=== PATIENT | male | born 1930 | race Caucasian/White ===

== ENCOUNTER → 2016-10-13 | Outpatient (CLI) | payer OTHER ==
[~2016-10-13] MED LIST: AMITRIPTYLINE H25 M3 PO; AMITRIPTYLINE H25 M4 PO; APAP500 PO; ASPIRIN325 PO; CIPROFLOXACIN500 M3 PO; CO Q-10100 MG PO; D-20002000 UNIT PO; FIBER-TABS625 MG PO; FISH OIL 1,001000 M2 PO; FISH OIL 1,2001 EAC4 PO; FLOMAX0.4 MG PO; GLYCOLAX POWDER17 G1 PO; HYDROCODON-ACE1 EAC7 PO; HYTRIN 2MG CAPSU2 M1 PO; HYTRIN 2MG CAPSU2 MG PO; IMDUR 60 MG TAB60 M1 PO; LIVALO4 MG PO; LOPRESSOR 50 MG50 M1 PO; LOPRESSOR25 PO; MIRALAX17 GM PO; MULTI VITAMIN1 EACH PO; NIASPAN ER 101000 M1 PO; NITROSTAT0.4 MG SL; OMEGA-31000 MG PO; OMEPRAZOLE 20 M20 MG PO; ONE DAILY COMP1 EAC1 PO; OSTEO BI-FLEX1 EAC1 PO; SYNTHROID137 MCG PO; TAMSULOSIN HCL0.4 M1 PO; TRIAMTERENE-HC1 EAC1 PO; TRIAMTERENE/HCT1 CA1 PO; TYLENOL W/CODEI1 TA2 PO; VITAMIN D-32000 UNIT PO; [UNRECOGNIZED DRUG - CODE] PO
== END ==
LOC: RAD 13:13
DX: R06.02 Shortness of breath (principal)

== ENCOUNTER → 2020-01-17 | Outpatient (CLI) | payer OTHER | LOC: SJCVCIMAG 12:08 | DX: R94.31 Abnormal electrocardiogram [ECG] [EKG] (principal); R00.1 Bradycardia, unspecified; I45.10 Unspecified right bundle-branch block; I65.23 Occlusion and stenosis of bilateral carotid arteries; I25.10 Atherosclerotic heart disease of native coronary artery without angina pectoris; I10 Essential (primary) hypertension; E78.5 Hyperlipidemia, unspecified; Z87.891 Personal history of nicotine dependence ==

== ENCOUNTER → 2020-07-17 | Outpatient (CLI) | payer OTHER | LOC: SJCVC 12:57 | PROVIDERS: ATTEND Internal Medicine | DX: R94.31 Abnormal electrocardiogram [ECG] [EKG] (principal); I49.8 Other specified cardiac arrhythmias; I25.10 Atherosclerotic heart disease of native coronary artery without angina pectoris; I10 Essential (primary) hypertension; I65.23 Occlusion and stenosis of bilateral carotid arteries; I45.10 Unspecified right bundle-branch block; E78.5 Hyperlipidemia, unspecified ==

== ENCOUNTER → 2021-01-14 | Outpatient (CLI) | payer OTHER ==
[~2021-01-14] MED LIST changes: +FINASTERIDE5 MG PO; +LOPRESSOR50 MG PO; +POTASSIUM CHLO10 ME1 PO; +TYLENOL325 M1 PO
== END ==
LOC: RAD 11:19
PROVIDERS: ATTEND Surgery
DX: M19.071 Primary osteoarthritis, right ankle and foot (principal); M79.89 Other specified soft tissue disorders

== ENCOUNTER → 2021-01-14 | Outpatient (CLI) | payer OTHER | LOC: LAB 11:42 | PROVIDERS: ATTEND Surgery | DX: Z01.812 Encounter for preprocedural laboratory examination (principal); Z20.822 Contact with and (suspected) exposure to COVID-19 ==

== ENCOUNTER 2021-01-15 10:09 | Day surgery (SDC) | payer OTHER ==
[~2021-01-15] VITALS: Ht 180.3 cm; Wt 97.5 kg
[2021-01-15 11:45] VITALS: BP 144/78
[2021-01-15] MEDS ORDERED: HYDROCODON-ACE1 EAC7 PO (14:33)
[2021-01-15 14:49] VITALS: BP 144/78
--- NOTE | 2021-01-19 19:06 | PATH ---
[facility] [address] [place] [address] PATHOLOGY RPT PROCEDURE Name: OSMAR BARRON Stefani Room #: DEP [facility] M.R.#: [id number] Admission: 01/15/21 Date of : 32 Discharge: 01/15/21 Report #: [id number] Path Case #: [id number] [facility] Accession Number: [id number] . 01 Material submitted: . PART A: shoulder - RIGHT POSTERIOR SHOULDER. Modifiers: right, posterior PART B: back - LEFT BACK. Modifiers: left PART C: ankle - RIGHT ANKLE. Modifiers: right . 01 Clinical history: . DISORDER OF SKIN AND SUBCUTANEOUS SKIN . 02 Diagnosis: A. Skin, lesion right posterior shoulder, excision: - BASAL CELL CARCINOMA. - Margins of resection negative for malignancy. . B. Skin, left left back, excision: - INVASIVE SQUAMOUS CELL CARCINOMA. - Margins of resection negative for malignancy. . C. Skin, lesion right ankle, excision: - Mature keratinous cyst. - Negative for malignancy. ([facility]:erin; 01/19/2021) QMS 01/19/2021 1851 Local . 02 Electronically signed: . Cintia Kaplan MD, Pathologist NPI- [id number] . 01 Gross description: . A. Received in formalin labeled "Osmar Barron, lesion right posterior shoulder" is an unoriented ellipse of skin measuring 4.2 x 1.7 x 1.1 cm. The skin surface displays an irregular, arauz white raised possible lesion measuring 1.6 x 0.7 cm and is located 0.9 cm from the closest tip and 0.3 cm from the closest edge. The margin is inked and the specimen is sectioned into 11 pieces. The specimen is submitted entirely in A1-A4, with the tips in the last cassette. . B. Received in formalin labeled "Osmar Barron lesion left back" is an unoriented ellipse of skin measuring 3.8 x 1.8 x 1.1 cm. The skin surface displays a raised irregular, arauz-white lesion measuring 1.4 x 1.2 x 0.9 cm and is located 1.1 cm from the closest tip and 0.3 cm closest edge. The margin is inked and the specimen is sectioned into 10 pieces. The specimen is submitted entirely in B1-B4, with the tips in the last cassette. . [address] [address] PATHOLOGY RPT PROCEDURE Name: OSMAR BARRON Room #: DEP [facility] Benjamin#: [id number] Admission: 01/15/21 Date of : 32 Discharge: 01/15/21 Report #: [id number] Path Case #: [id number] C. Received in formalin labeled "Osmar Barron lesion right ankle" is an unoriented ellipse of skin measuring 4.7 x 1.9 x 0.7 cm. The skin surface displays an irregular ill-defined arauz-white lesion measuring 1.7 x 1.0 0.1 cm located 1.1 cm closest tip and 0.2 cm closest edge. The margin is inked and the specimen is sectioned into 14 pieces. The specimen is submitted entirely in C1-C5, with the tips in the last cassette. ([facility]; 01/17/2021) . GZA/GZA 01/19/2021 1614 Local . 02 Pathologist provided ICD-10: C44.612, C44.529, L72.0 . 02 CPT . 545177, 348894, 201006 Specimen Comment: A courtesy copy of this report has been sent to [phone], [phone] Specimen Comment: [phone] Specimen Comment: Report sent to / DR DESAI Performed at: [address], [place] [id number] MD Candelario Blas MD Phone: [phone] Performed at: [address] [id number] MD Cintia Kaplan MD Phone: [phone]
--- NOTE | 2021-01-20 11:03 | O ---
[facility] [place] [address] OPERATIVE REPORT Name: OSMAR DANG Room #: DEP [facility]#: [id number] Admission: 01/15/21 Attend Phys: Lencho Avelar MD Discharge: 01/15/21 Date of : 32 Report #: [id number] THIS REPORT FOR: cc: Grabiel Toney Steven F. DO Chu, Peter Y. MD ~ DATE OF SERVICE: 01/15/2021 PREOPERATIVE DIAGNOSES: Multiple skin lesions that are nonhealing. Rule out cancer. One lesion is located in the right shoulder, slightly posterior. Second lesion is located in the left side. Third lesion is located in the right ankle. All of these measured about a centimeter and half. PROCEDURES PERFORMED: Excision of multiple skin lesions: 1. Right shoulder with a 2 x 5 cm ellipse. 2. Excision of left side lesion with a 1.5 x 4 cm ellipse. 3. Excision of right ankle lesion with 6 x 2.2 cm ellipse. 4. Excision of right ankle lesion 2.2 x 6 cm with transverse skin by skin elevation. ANESTHESIA: IV sedation, local 0.25% Marcaine. SURGEON: Lencho Avelar MD COMPLICATIONS: None. BLOOD LOSS: 30 mL. PROCEDURE NOTE: With the patient in supine position, the right slightly posterior shoulder lesion was able to be identified in the supine position. The patient head was turned to the left. This was prepped with ChloraPrep and toweled off in sterile fashion. Local anesthetic was used to anesthetize the skin and subcutaneous tissue. The lesion was excised. Cautery was used for hemostasis. Specimen sent to pathology. The lesion was removed with grossly normal margin. Skin was closed with 4-0 nylon with a running fashion. The sterile towel was used to cover this area. The left side lesion was then excised. This was also removed with normal skin margins. This is an exophytic lesion that is growing. This was excised with an elliptical excision and then closed with 4-0 nylon in running locking fashion. Hemostasis obtained. The right ankle was then prepped in prep towel and draped in sterile fashion. Local anesthetic was placed. This is the more difficult excision because of the lack of mobility of the skin in this area. The lesion was completely removed. [address] [address] OPERATIVE REPORT Name: OSMAR DANG Room #: DEP [facility] Benjamin#: [id number] Admission: 01/15/21 Attend Phys: Lencho Avelar MD Discharge: 01/15/21 Date of : 32 Report #: [id number] This was a nodular lesion with some open sores and small purulent fluid present. This apparently was drained a month ago, still has not healed. This was excised down to the subcutaneous tissue and fascia area. The greater saphenous vein was identified under this. Bleeding was controlled with cautery and also 4-0 Vicryl suture. The lesion was excised. Skin was elevated about 2 cm anterior and posteriorly. The skin was brought together with 4-0 nylon suture along the edges and then in the mid part closed with 3-0 nylon. The wound did come together with some tension. Antibiotic ointment, 4 x 4, Kerlix, Lobo wrap was placed. The patient was then taken to recovery room having tolerated the procedure well. <ELECTRONICALLY SIGNED> By: Lencho Avelar MD 01/20/21 1103 11 36 Lencho Avelar MD /nt
== END 2021-01-15 15:30 | disposition home or self-care (01) ==
LOC: TBA 10:09 → OR 10:09
PROVIDERS: ATTEND Surgery
DX: C44.612 Basal cell carcinoma of skin of right upper limb, including shoulder (principal); C44.529 Squamous cell carcinoma of skin of other part of trunk; L72.0 Epidermal cyst; G62.9 Polyneuropathy, unspecified; I10 Essential (primary) hypertension; E78.00 Pure hypercholesterolemia, unspecified; I25.2 Old myocardial infarction; K21.9 Gastro-esophageal reflux disease without esophagitis; N40.0 Benign prostatic hyperplasia without lower urinary tract symptoms; E03.9 Hypothyroidism, unspecified; M19.90 Unspecified osteoarthritis, unspecified site; I25.10 Atherosclerotic heart disease of native coronary artery without angina pectoris; Z98.890 Other specified postprocedural states; Z79.899 Other long term (current) drug therapy; Z87.891 Personal history of nicotine dependence; Z85.828 Personal history of other malignant neoplasm of skin; Z90.49 Acquired absence of other specified parts of digestive tract; Z98.42 Cataract extraction status, left eye; Z95.1 Presence of aortocoronary bypass graft; Z98.41 Cataract extraction status, right eye
CPT/HCPCS: 50010; 50101; 50386; 50403; 56526; 56527; 62110; 62850

== ENCOUNTER → 2021-01-19 | Outpatient (CLI) | payer OTHER | LOC: SJCVCIMAG | PROVIDERS: ATTEND Internal Medicine | DX: I65.23 Occlusion and stenosis of bilateral carotid arteries (principal); I25.10 Atherosclerotic heart disease of native coronary artery without angina pectoris; I35.1 Nonrheumatic aortic (valve) insufficiency; R94.31 Abnormal electrocardiogram [ECG] [EKG]; R00.1 Bradycardia, unspecified; I45.10 Unspecified right bundle-branch block; I10 Essential (primary) hypertension; E78.5 Hyperlipidemia, unspecified; E03.9 Hypothyroidism, unspecified; I25.2 Old myocardial infarction; Z90.49 Acquired absence of other specified parts of digestive tract; Z95.1 Presence of aortocoronary bypass graft; Z98.890 Other specified postprocedural states; Z88.8 Allergy status to other drugs, medicaments and biological substances; Z79.82 Long term (current) use of aspirin; Z79.899 Other long term (current) drug therapy; Z87.891 Personal history of nicotine dependence; Z82.49 Family history of ischemic heart disease and other diseases of the circulatory system ==